=== PATIENT | male | born 1955 | race Caucasian/White ===

== ENCOUNTER 2017-11-17 01:14 | Emergency (ER) | payer BC ==
[2017-11-17] VITALS (9 sets, daily range): BP systolic 83–130; BP diastolic 44–94; PULSE 65–82; RESP 14–16; TEMP 97.3; O2SAT 92–98
--- NOTE | 2017-11-17 01:28 | PD ---
HPI Chief Complaint: Injury Time Seen by Provider: 01:26 Travel History International Travel<30 days: No Contact w/Intl Traveler<30days: No Traveled to known affect area: No History of Present Illness HPI 62-year-old male presents for evaluation of left wrist injury. Prior to arrival he reports that he was trying to break up a flight when he fell on his outstretched left hand. He notes pain deformity left wrist, throbbing, constant , worse with movement. Symptoms moderate with no aggravating or relieving factors. He reports he became nauseous and vomited once initially after the injury. Denies any numbness, tingling, weakness. He denies any other injuries and he has no other complaints at this time. [facility] Past Medical History Medical History: Denies Significant Hx Diminished Hearing: No Past Surgical History Other Surgery: Yes (PINS IN LEFT ARM ) Social History Alcohol Use: Yes (SOCIALLY ) Tobacco Use: No Substance Use: No Allergies-Medications (Allergen,Severity, Reaction): Coded Allergies: No Known Allergies (Unverified , 11/17/17) Review of Systems General / Constitutional: No: Fever, Chills Cardiovascular: No: Chest Pain or Discomfort Respiratory: No: Shortness of Breath Gastrointestinal: Positive: Nausea, Vomiting, No: Abdominal Pain Musculoskeletal: Positive: Limited ROM, Pain, Other (Positive for deformity left wrist.) Neurologic: No: Weakness, Paresthesia Physical Exam Narrative GENERAL: Well-developed well-nourished male in no acute distress SKIN: Warm and dry. HEAD: Atraumatic. Normocephalic. EYES: Pupils equal and round. No scleral icterus. No injection or drainage. CARDIOVASCULAR: Regular rate and rhythm. No murmur appreciated. RESPIRATORY: No accessory muscle use. Clear to auscultation. Breath sounds equal bilaterally. GASTROINTESTINAL: Abdomen soft, non-tender, nondistended. Hepatic and splenic margins not palpable. MUSCULOSKELETAL: Deformity noted to the left wrist. Tender to palpation left wrist. Capillary refill is less than 2 seconds in all digits of the left hand. Sensation is preserved in the distal median, radial and ulnar nerve distributions. 2+ radial pulse. NEUROLOGICAL: Awake and alert. No obvious cranial nerve deficits. Motor grossly within normal limits. Normal speech. Data Data Last Documented VS Vital Signs Date Time Temp Pulse Resp B/P (MAP) Pulse Ox O2 Delivery O2 Flow Rate FiO2 11/17/17 02:20 69 14 105/59 (74) 98 Nasal Cannula 2.00 11/17/17 01:16 97.3 Orders Orders Wrist, Complete (Ruz4dtp) (11/17/17 ) Lidocaine 1% Inj (50 Ml) (Xylocaine 1% I (11/17/17 01:30) Iv Access Insert/Monitor (11/17/17 01:26) Morphine Inj (Morphine Inj) (11/17/17 01:30) Ondansetron Odt (Zofran Odt) (11/17/17 01:30) Metoclopramide Inj (Reglan Inj) (11/17/17 01:45) Wrist, Limited (Ap&Lat) (11/17/17 ) Fiberglass Sugartong Sp Ad Arm (11/17/17 ) Sling Cradle Arm (11/17/17 ) Sodium Chlor 0.9% 1000 Ml Inj (Ns 1000 M (11/17/17 02:36) Sodium Chlor 0.9% 1000 Ml Inj (Ns 1000 M (11/17/17 02:36) Splint Or Brace Apply/Monitor (11/17/17 02:36) Ed Discharge Order (11/17/17 02:36) Radiology Film Requests (11/17/17 ) MDM Medical Decision Making Medical Screen Exam Complete: Yes Emergency Medical Condition: Yes Medical Record Reviewed: Yes Differential Diagnosis Wrist fracture, dislocation, sprain Narrative Course This patient presents with pain and deformity to left wrist after fall on outstretched hand. X-ray confirms distal radius and ulnar fracture, some displacement of the radius fragment. After consent was obtained a hematoma block was performed and the fracture fragment was reduced, see accompanying procedural note. The patient did become nauseous and hypotensive just prior to the procedure so morphine was not administered. He was administered sublingual Zofran and then Reglan with improvement in his nausea. He was given 2 L of IV fluids for hypotension and was monitored for some time. Postreduction x-ray reveals improved anatomic alignment of the fracture fragments. Sugar tong splint was applied. Postreduction he has normal sensation distally and capillary refill is less than 2 seconds all digits of the left hand. The patient was discharged with copy of his x-ray and his radiology reports for follow-up in [facility] where he lives. He declines pain medication prescription. He has a ride home. Procedures Procedure Narrative Left wrist fracture reduction: The dorsum of the left wrist was prepped with Betadine. Hematoma block was performed with 10 cc of 1% lidocaine. The fracture was reduced with traction and countertraction. Splint was applied. Postreduction x-ray confirms reduction of the injury. Patient tolerated procedure well. Diagnosis Primary Impression: Left wrist fracture Referrals: Orthopedist Additional Instructions: Follow-up with an orthopedist in the next week. Do not remove the splint. Tylenol Motrin for pain. Return for any emergent medical conditions. Med/Other Pt SpecificInfo: No Change to Meds, Orthopedic Instructions Disposition: 01 DISCHARGE HOME Condition: Stable Sukhwinder Kerr Nov 17, 2017 01:28
[2017-11-17] MEDS ORDERED: LIDOCAINE HCL 1% 50 ML VIAL INFIL ONE (01:30)
[2017-11-17] MEDS ORDERED: MORPHINE SULFATE 4 MG/ML INJ IV PUSH ONE (01:30)
[2017-11-17] MEDS ORDERED: ONDANSETRON ODT 4 MG TAB PO ONE (01:30)
[2017-11-17] MEDS ORDERED: METOCLOPRAMIDE HCL 10 MG/2 ML VIAL IV PUSH ONE (01:45)
--- NOTE | 2017-11-17 02:16 | RADRPT ---
EXAM DATE: 11/17/2017 1:44 AM EDT AGE/SEX: 62 years / Male INDICATIONS: Left wrist pain post fall today CLINICAL DATA: This is the patient's initial encounter. Patient reports that signs and symptoms have been present for 1 day and indicates a pain score of 8/10. MEDICAL/SURGICAL HISTORY: None. None. COMPARISON: No prior exams available for comparison. FINDINGS: Views of left wrist are obtained. There is an impacted fracture distal radius with slight displacemen t. Ulnar styloid fracture. Extensive soft tissue swelling CONCLUSION: Fractures of distal radius and ulnar styloid Electronically signed by: Maikol Darling MD 11/17/2017 2:14 AM EDT
--- NOTE | 2017-11-17 02:33 | RADRPT ---
EXAM DATE: 11/17/2017 2:14 AM EDT AGE/SEX: 62 years / Male INDICATIONS: Post reduction left wrist fracture CLINICAL DATA: This is the patient's initial encounter. Patient reports that signs and symptoms have been present for 1 day and indicates a pain score of Nonresponsive. MEDICAL/SURGICAL HISTORY: None. None. COMPARISON: [facility] [place], WRIST LEFT COMPLETE ([id number]), 11/17/2017. . FINDINGS: Post reduction views left wrist are obtained. Patient is within a splint. Alignment has improved of d istal radius fracture. Ulnar styloid fracture again seen CONCLUSION: Post reduction views demonstrates better alignment of fractures. Electronically signed by: Maikol Darling MD 11/17/2017 2:31 AM EDT
[2017-11-17] MEDS ORDERED: SODIUM CHLOR 0.9% 1000 ML INJ 1,000 ML IV SCH ×2 (02:36)
== END 2017-11-17 03:06 | disposition home or self-care (01) ==
LOC: NEPD 01:14
DX: S52.512A Displaced fracture of left radial styloid process, initial encounter for closed fracture (principal); S52.612A Displaced fracture of left ulna styloid process, initial encounter for closed fracture; R11.2 Nausea with vomiting, unspecified; W18.30XA Fall on same level, unspecified, initial encounter
CPT/HCPCS: 25605; 73100; 73110; 96374; 96375; 99284; J2270; J2765; J7030